=== PATIENT | male | born 1945 | race Asian ===

== ENCOUNTER → 2016-07-11 | Outpatient (CLI) | payer MEDICARE, BC ==
[~2016-07-11] MED LIST: B-121000 MCG PO; CIPRO 250MG TA250 MG PO; INVANZ INJ1 G/VIAL IV; LOFIBRA160 MG PO; MULTIPLE VITAMI1 CAP PO; OSCAL 500 TAB500 MG PO; VITAMIN C500 MG PO; VITAMIN D1000 IU PO; VOLTAREN 75 DR75 MG PO
== END ==
LOC: WCC 12:39
DX: T81.89XA Other complications of procedures, not elsewhere classified, initial encounter (principal)
CPT/HCPCS: A6199; A6212; G0463

== ENCOUNTER → 2016-07-17 | Outpatient (CLI) | payer MEDICARE, BC | LOC: WCC 09:16 | DX: T81.89XA Other complications of procedures, not elsewhere classified, initial encounter (principal) | CPT/HCPCS: 13973; 17717; A6199; A6212; G0463 ==

== ENCOUNTER → 2016-07-20 | Outpatient (CLI) | payer MEDICARE, BC | LOC: WCC 09:32 | DX: Z00.00 Encounter for general adult medical examination without abnormal findings (principal) ==

== ENCOUNTER → 2016-08-06 | Outpatient (CLI) | payer MEDICARE, BC | LOC: WCC 08:57 | DX: T86.822 Skin graft (allograft) (autograft) infection (principal) | CPT/HCPCS: 13919; 17717; 27516; 50007; A6207; A6212; G0463; Q4172 ==

== ENCOUNTER → 2016-08-14 | Outpatient (CLI) | payer MEDICARE, BC | LOC: WCC 08:27 | DX: T86.822 Skin graft (allograft) (autograft) infection (principal) | CPT/HCPCS: 13919; 17717; 27516; 50007; A6207; A6212; Q4172 ==

== ENCOUNTER → 2016-08-22 | Outpatient (CLI) | payer MEDICARE, BC | LOC: WCC 09:37 | DX: T86.822 Skin graft (allograft) (autograft) infection (principal) | CPT/HCPCS: 13919; 17717; 27516; 50007; A6207; A6212; Q4172 ==

== ENCOUNTER 2016-08-24 08:00 | Outpatient (RCR) | payer MEDICARE, BC ==
[2016-07-16 14:40] VITALS: BP 104/75; PULSE 65; TEMP 98.3
[2016-07-17 11:45] VITALS: BP 121/76; PULSE 63; TEMP 98.2
[2016-07-19 12:27] VITALS: BP 109/70; PULSE 63; TEMP 97.7
[2016-07-20 13:44] VITALS: BP 122/69; PULSE 63; TEMP 98.2
[2016-07-21 07:20] VITALS: BP 105/65; PULSE 65; TEMP 98
[2016-07-22 07:50] LABS: BASO % 0.5 % (0.0-2.0); EOS # 0.2 (0.0-0.7); EOS % 3.1 % (0-4.0); GRAN # 2.6 (1.4-6.5); GRAN % 41.9 % (42.2-75.2); HEMATOCRIT 37.6 % (42.0-52.0); LYMPH # 2.6 (1.2-3.4); LYMPH % 42.4 % (20.0-51.0); MEAN CELL VOLUME 90 fl (80.0-100.0); MEAN CORPUSCULAR HEMOGLOBIN 31 pg (27.0-31.0); MEAN CORPUSCULAR HGB CONC 35 g/dl (33.0-37.0); MEAN PLATELET VOLUME 10.4 fl (7.4-10.4); MONO # 0.7 (0.1-0.6); MONO % 11.9 % (1.7-9.3); PLATELET COUNT 218 K/mm3 (130-400); RED BLOOD COUNT 4.16 M/mm3 (4.20-5.60); WHITE BLOOD COUNT 6.2 K/mm3 (4.8-10.8)
[2016-07-22 08:21] LABS: ADJUSTED CALCIUM 9.3 mg/dL (8.4-10.2); ALANINE AMINOTRANSFERASE 31 U/L (21-72); ALKALINE PHOSPHATASE 59 U/L (50-136); ANION GAP 12 mmol/L (7-16); BILIRUBIN,TOTAL 0.6 mg/dL (0.0-1.0); BLOOD UREA NITROGEN 17 mg/dL (9-20); CALCIUM 9.3 mg/dL (8.4-10.2); CARBON DIOXIDE 23 mmol/L (22-30); CHLORIDE 107 mmol/L (98-107); CREATININE, serum 0.85 mg/dL (0.66-1.25); GLUCOSE 91 mg/dL (74-106); POTASSIUM 3.9 mmol/L (3.4-5.0); SODIUM 143 mmol/L (137-145); TOTAL PROTEIN 6.8 gm/dL (6.4-8.2)
[2016-07-22 08:22] LABS: C-REACTIVE PROTEIN < 0.5 mg/dL (0.0-0.9)
[2016-07-22 08:59] LABS: ERYTHROCYTE SEDIMENTATION RATE 7 mm/hr (0-30)
[2016-07-22 09:17] VITALS: BP 109/73; PULSE 67; TEMP 98.1
[2016-07-23 07:00] VITALS: BP 114/78; PULSE 70; TEMP 98
[2016-07-24 09:50] VITALS: BP 119/76; PULSE 68; TEMP 98.3
[2016-07-25 10:08] VITALS: BP 101/71; PULSE 63; TEMP 99
[2016-07-26 14:33] VITALS: BP 98/71; PULSE 61; TEMP 98.1
[2016-07-27 13:05] VITALS: BP 102/66; PULSE 68; TEMP 98.2
[2016-07-28 07:39] VITALS: BP 100/75; PULSE 67; TEMP 98.6
[2016-07-29 07:00] VITALS: BP 122/77; PULSE 64; TEMP 98.2
[2016-07-30 07:57] VITALS: BP 108/73; PULSE 64; TEMP 98.3
[2016-07-30 08:31] LABS: ADJUSTED CALCIUM 9.3 mg/dL (8.4-10.2); ALANINE AMINOTRANSFERASE 29 U/L (21-72); ALBUMIN 3.9 gm/dL (3.5-5.0); ALKALINE PHOSPHATASE 61 U/L (50-136); ANION GAP 12 mmol/L (7-16); BILIRUBIN,TOTAL 0.8 mg/dL (0.0-1.0); BLOOD UREA NITROGEN 16 mg/dL (9-20); CALCIUM 9.2 mg/dL (8.4-10.2); CARBON DIOXIDE 23 mmol/L (22-30); CHLORIDE 105 mmol/L (98-107); CREATININE, serum 0.87 mg/dL (0.66-1.25); GLUCOSE 91 mg/dL (74-106); POTASSIUM 3.9 mmol/L (3.4-5.0); SODIUM 141 mmol/L (137-145); TOTAL PROTEIN 6.6 gm/dL (6.4-8.2)
[2016-07-30 08:35] LABS: BASO % 0.7 % (0.0-2.0); EOS # 0.2 (0.0-0.7); EOS % 3.7 % (0-4.0); GRAN # 2.1 (1.4-6.5); GRAN % 38.8 % (42.2-75.2); HEMOGLOBIN 12.3 g/dl (13.5-18.0); LYMPH # 2.5 (1.2-3.4); LYMPH % 45.3 % (20.0-51.0); MEAN CELL VOLUME 91 fl (80.0-100.0); MEAN CORPUSCULAR HEMOGLOBIN 32 pg (27.0-31.0); MEAN CORPUSCULAR HGB CONC 35 g/dl (33.0-37.0); MEAN PLATELET VOLUME 9.8 fl (7.4-10.4); MONO # 0.6 (0.1-0.6); MONO % 11.3 % (1.7-9.3); PLATELET COUNT 200 K/mm3 (130-400); RED BLOOD COUNT 3.91 M/mm3 (4.20-5.60); WHITE BLOOD COUNT 5.5 K/mm3 (4.8-10.8)
[2016-07-30 08:41] LABS: HEMATOCRIT 35.7 % (42.0-52.0)
[2016-07-30 08:43] LABS: C-REACTIVE PROTEIN < 0.5 mg/dL (0.0-0.9)
[2016-07-30 09:08] LABS: ERYTHROCYTE SEDIMENTATION RATE 7 mm/hr (0-30)
[2016-07-31 07:34] VITALS: BP 105/65; PULSE 65; TEMP 98
[2016-08-03 10:17] VITALS: BP 102/68; PULSE 65; TEMP 98.6
[2016-08-04 08:24] VITALS: BP 116/76; PULSE 63; TEMP 97.5
[2016-08-05 06:56] VITALS: BP 125/79; PULSE 67; TEMP 98.4
[2016-08-06 12:20] VITALS: BP 96/69; PULSE 65; TEMP 97.9
[2016-08-07 09:39] VITALS: BP 97/67; PULSE 66; TEMP 98.3
[2016-08-08 09:57] VITALS: BP 95/65; PULSE 66; TEMP 98.1
[2016-08-09 10:28] VITALS: BP 109/70; PULSE 69; TEMP 97.6
[2016-08-10 12:06] LABS: BASO % 0.6 % (0.0-2.0); EOS # 0.1 (0.0-0.7); EOS % 1.8 % (0-4.0); GRAN # 3.8 (1.4-6.5); GRAN % 53.4 % (42.2-75.2); HEMATOCRIT 37.2 % (42.0-52.0); HEMOGLOBIN 13.1 g/dl (13.5-18.0); LYMPH # 2.5 (1.2-3.4); LYMPH % 34.8 % (20.0-51.0); MEAN CELL VOLUME 90 fl (80.0-100.0); MEAN CORPUSCULAR HEMOGLOBIN 32 pg (27.0-31.0); MEAN CORPUSCULAR HGB CONC 35 g/dl (33.0-37.0); MEAN PLATELET VOLUME 9.6 fl (7.4-10.4); MONO # 0.6 (0.1-0.6); MONO % 9.1 % (1.7-9.3); PLATELET COUNT 195 K/mm3 (130-400); RED BLOOD COUNT 4.13 M/mm3 (4.20-5.60); REDCELL DISTRIBUTION WIDTH-CV 12.9 % (11.5-14.5); WHITE BLOOD COUNT 7.1 K/mm3 (4.8-10.8)
[2016-08-10 12:08] VITALS: BP 108/69; PULSE 69; TEMP 97.6
[2016-08-10 12:28] LABS: ADJUSTED CALCIUM 9.1 mg/dL (8.4-10.2); ALANINE AMINOTRANSFERASE 23 U/L (21-72); ALKALINE PHOSPHATASE 68 U/L (50-136); ANION GAP 13 mmol/L (7-16); BILIRUBIN,TOTAL 0.7 mg/dL (0.0-1.0); BLOOD UREA NITROGEN 19 mg/dL (9-20); CALCIUM 9.1 mg/dL (8.4-10.2); CARBON DIOXIDE 20 mmol/L (22-30); CHLORIDE 109 mmol/L (98-107); CREATININE, serum 1.03 mg/dL (0.66-1.25); GLUCOSE 96 mg/dL (74-106); POTASSIUM 3.8 mmol/L (3.4-5.0); SODIUM 142 mmol/L (137-145); TOTAL PROTEIN 6.6 gm/dL (6.4-8.2)
[2016-08-10 12:34] LABS: C-REACTIVE PROTEIN < 0.5 mg/dL (0.0-0.9)
[2016-08-10 12:37] LABS: ERYTHROCYTE SEDIMENTATION RATE 4 mm/hr (0-30)
[2016-08-11 07:59] VITALS: BP 104/71; PULSE 68; TEMP 98.1
[2016-08-12 08:46] VITALS: BP 110/66; PULSE 65; TEMP 98.3
[2016-08-13 08:00] VITALS: BP 109/71; PULSE 74; TEMP 97.9
[2016-08-14 08:13] VITALS: BP 105/71; PULSE 67; TEMP 97.7
[2016-08-15 08:15] VITALS: BP 105/75; PULSE 64; TEMP 98.6
[2016-08-16 08:01] VITALS: BP 104/62; PULSE 72; TEMP 98.4
[2016-08-16 08:40] LABS: BASO # 0.1 (0.0-0.2); BASO % 0.8 % (0.0-2.0); EOS # 0.2 (0.0-0.7); EOS % 2.5 % (0-4.0); GRAN # 3.1 (1.4-6.5); GRAN % 42.9 % (42.2-75.2); HEMOGLOBIN 12.8 g/dl (13.5-18.0); LYMPH # 3.1 (1.2-3.4); LYMPH % 42.8 % (20.0-51.0); MEAN CELL VOLUME 92 fl (80.0-100.0); MEAN CORPUSCULAR HEMOGLOBIN 32 pg (27.0-31.0); MEAN CORPUSCULAR HGB CONC 35 g/dl (33.0-37.0); MEAN PLATELET VOLUME 10.2 fl (7.4-10.4); MONO # 0.8 (0.1-0.6); MONO % 10.7 % (1.7-9.3); PLATELET COUNT 201 K/mm3 (130-400); RED BLOOD COUNT 4.04 M/mm3 (4.20-5.60); REDCELL DISTRIBUTION WIDTH-CV 12.8 % (11.5-14.5); WHITE BLOOD COUNT 7.2 K/mm3 (4.8-10.8)
[2016-08-16 08:52] LABS: ADJUSTED CALCIUM 9.1 mg/dL (8.4-10.2); ALANINE AMINOTRANSFERASE 22 U/L (21-72); ALKALINE PHOSPHATASE 65 U/L (50-136); ANION GAP 13 mmol/L (7-16); BILIRUBIN,TOTAL 0.8 mg/dL (0.0-1.0); BLOOD UREA NITROGEN 18 mg/dL (9-20); CALCIUM 9.1 mg/dL (8.4-10.2); CARBON DIOXIDE 23 mmol/L (22-30); CHLORIDE 105 mmol/L (98-107); CREATININE, serum 0.96 mg/dL (0.66-1.25); GLUCOSE 96 mg/dL (74-106); POTASSIUM 3.6 mmol/L (3.4-5.0); SODIUM 141 mmol/L (137-145); TOTAL PROTEIN 6.8 gm/dL (6.4-8.2)
[2016-08-16 08:56] LABS: C-REACTIVE PROTEIN < 0.5 mg/dL (0.0-0.9)
[2016-08-16 09:14] LABS: ERYTHROCYTE SEDIMENTATION RATE 7 mm/hr (0-30)
[2016-08-17 07:59] VITALS: BP 106/77; PULSE 68; TEMP 97.9
[2016-08-18 09:13] VITALS: BP 101/65; PULSE 69; TEMP 98.1
[2016-08-20 08:05] VITALS: BP 109/65; PULSE 68; TEMP 98.5
[2016-08-21 07:24] VITALS: BP 117/67; PULSE 72; TEMP 97.8
[2016-08-22 08:09] VITALS: BP 108/64; PULSE 65; TEMP 97.9
[2016-08-23 08:24] VITALS: BP 108/69; PULSE 66; TEMP 98.4
[2016-08-23 08:38] LABS: BASO % 0.7 % (0.0-2.0); EOS # 0.2 (0.0-0.7); EOS % 3.5 % (0-4.0); GRAN # 2.9 (1.4-6.5); GRAN % 50.6 % (42.2-75.2); HEMOGLOBIN 12.5 g/dl (13.5-18.0); LYMPH % 34.7 % (20.0-51.0); MEAN CELL VOLUME 92 fl (80.0-100.0); MEAN CORPUSCULAR HEMOGLOBIN 32 pg (27.0-31.0); MEAN CORPUSCULAR HGB CONC 35 g/dl (33.0-37.0); MONO # 0.6 (0.1-0.6); PLATELET COUNT 205 K/mm3 (130-400); RED BLOOD COUNT 3.93 M/mm3 (4.20-5.60); REDCELL DISTRIBUTION WIDTH-CV 12.9 % (11.5-14.5); WHITE BLOOD COUNT 5.7 K/mm3 (4.8-10.8)
[2016-08-23 08:54] LABS: ALANINE AMINOTRANSFERASE 24 U/L (21-72); ALBUMIN 3.9 gm/dL (3.5-5.0); ALKALINE PHOSPHATASE 64 U/L (50-136); ANION GAP 10 mmol/L (7-16); BILIRUBIN,TOTAL 0.6 mg/dL (0.0-1.0); BLOOD UREA NITROGEN 18 mg/dL (9-20); CALCIUM 8.9 mg/dL (8.4-10.2); CARBON DIOXIDE 23 mmol/L (22-30); CHLORIDE 107 mmol/L (98-107); CREATININE, serum 0.98 mg/dL (0.66-1.25); GLUCOSE 94 mg/dL (74-106); SODIUM 140 mmol/L (137-145); TOTAL PROTEIN 6.6 gm/dL (6.4-8.2)
[2016-08-23 08:57] LABS: C-REACTIVE PROTEIN < 0.5 mg/dL (0.0-0.9)
[2016-08-23 09:26] LABS: ERYTHROCYTE SEDIMENTATION RATE 2 mm/hr (0-30)
[~2016-08-24] VITALS: Ht 172.7 cm; Wt 70.9 kg
[2016-08-24 11:28] VITALS: BP 118/69; PULSE 61; TEMP 98.9
== END 2016-08-24 12:04 | disposition still patient (30) ==
LOC: EUO 08:00
PROVIDERS: Internal Medicine Infectious Disease
DX: T14.8 Other injury of unspecified body region (principal)
CPT/HCPCS: C1751; J1335; J1644

== ENCOUNTER → 2016-08-29 | Outpatient (CLI) | payer MEDICARE, BC | LOC: WCC 09:37 | DX: T86.822 Skin graft (allograft) (autograft) infection (principal) | CPT/HCPCS: A6212; Q4172 ==

== ENCOUNTER → 2016-08-29 | Outpatient (CLI) | payer MEDICARE, BC | LOC: ZCOL.LAB 16:39 | DX: T86.822 Skin graft (allograft) (autograft) infection (principal) ==

== ENCOUNTER → 2016-09-06 | Outpatient (CLI) | payer MEDICARE, BC | LOC: WCC 10:02 | DX: T86.822 Skin graft (allograft) (autograft) infection (principal) | CPT/HCPCS: 17717; A6212; G0463 ==

== ENCOUNTER → 2016-09-12 | Outpatient (CLI) | payer MEDICARE, BC | LOC: WCC 10:44 | DX: T86.822 Skin graft (allograft) (autograft) infection (principal) | CPT/HCPCS: 17717; A6212; G0463 ==

== ENCOUNTER → 2016-09-19 | Outpatient (CLI) | payer MEDICARE, BC | LOC: WCC 08:35 | DX: T86.822 Skin graft (allograft) (autograft) infection (principal) | CPT/HCPCS: 13919; 17717; 27510; A6197; A6212; G0463 ==

== ENCOUNTER → 2016-10-05 | Outpatient (CLI) | payer MEDICARE, BC | LOC: WCC 09:46 | DX: Z01.89 Encounter for other specified special examinations (principal) ==

== ENCOUNTER → 2016-10-08 | Outpatient (CLI) | payer MEDICARE, BC | LOC: WCC 08:16 | DX: T86.822 Skin graft (allograft) (autograft) infection (principal) | CPT/HCPCS: 17717; 27510; A6197; A6212; G0463 ==

== ENCOUNTER → 2016-10-15 | Outpatient (CLI) | payer MEDICARE, BC | LOC: WCC 08:07 | DX: T86.822 Skin graft (allograft) (autograft) infection (principal) | CPT/HCPCS: 17717; 27510; 50003; A6197; A6212; Q4172 ==

== ENCOUNTER → 2016-10-22 | Outpatient (CLI) | payer MEDICARE, BC | LOC: WCC 09:43 | DX: T86.822 Skin graft (allograft) (autograft) infection (principal) | CPT/HCPCS: G0463 ==

== ENCOUNTER → 2016-10-26 | Outpatient (CLI) | payer MEDICARE, BC | LOC: WCC 08:43 | DX: T86.822 Skin graft (allograft) (autograft) infection (principal) | CPT/HCPCS: G0463 ==

== ENCOUNTER → 2016-10-26 | Outpatient (CLI) | payer MEDICARE, BC | LOC: ZCOL.LAB 15:41 | DX: T86.822 Skin graft (allograft) (autograft) infection (principal) ==

== ENCOUNTER → 2016-10-31 | Outpatient (CLI) | payer MEDICARE, BC | LOC: WCC 09:05 | DX: T86.822 Skin graft (allograft) (autograft) infection (principal) | CPT/HCPCS: G0463 ==

== ENCOUNTER → 2016-11-07 | Outpatient (CLI) | payer MEDICARE, BC | LOC: WCC 08:49 | DX: T86.822 Skin graft (allograft) (autograft) infection (principal) | CPT/HCPCS: G0463 ==

== ENCOUNTER → 2016-11-14 | Outpatient (CLI) | payer MEDICARE, BC | LOC: WCC 11-12 09:17 | DX: T86.822 Skin graft (allograft) (autograft) infection (principal) | CPT/HCPCS: G0463 ==

== ENCOUNTER → 2016-11-21 | Outpatient (CLI) | payer MEDICARE, BC | LOC: WCC 11-20 10:03 | DX: T86.822 Skin graft (allograft) (autograft) infection (principal) | CPT/HCPCS: G0463 ==